=== PATIENT | male | born 1980 | race Caucasian/White ===

== ENCOUNTER 2019-08-16 09:59 | Emergency (ER) | payer OTHER ==
[2019-08-16 10:29] LABS: ABS Basophils 0.1 10^3/ul (0-0.2); ABS Eosinophils 0.3 10^3/ul (0-0.6); ABS Lymphocytes 2.5 10^3/ul (1.0-4.8); ABS Monocytes 0.6 10^3/ul (0-0.8); ABS Neutrophils 3.5 10^3/ul (1.5-7.7); Eosinophil % 3.7 %; Hematocrit 44 % (42-52); Hemoglobin 15.3 g/dL (14.0-18.0); Lymphocyte % 35.6 %; Mean Corpuscular HGB Conc 35 g/dL (31-36); Mean Corpuscular Hemoglobin 32 pg (27-31); Mean Corpuscular Volume 93 fL (80-94); Mean Platelet Volume 7.8 fL (7.4-10.4); Platelet Count 269 10^3/uL (150-450); Red Blood Count 4.72 10^6 /uL (4.18-5.48); Red Cell Distribution Width 12 % (10-15)
--- OUTSIDE RECORDS SUMMARY | 2019-08-16 10:29 | XMS REPORT | Continuity of Care Document ---
:1980 External Reference #:[id number] Author Name GEOVANNY Mann (transmitted by agent of provider Amari Fajardo M.D.) Address [address] [place] [address] Care Team Providers Name Role Phone Nato Bravo MD - Family Medicine Care Team Information Apron Trimmer [phone] [facility] - Care Team Information Apron Trimmer [phone] G[facility]enterology Problems Active Problems Provider Date Gastroesophageal reflux disease Nato Bravo M.D. Onset: 02/06/2016 Mixed hyperlipidemia Nato Bravo M.D. Onset: 02/06/2016 Allergic rhinitis Nato Bravo M.D. Onset: 02/06/2016 Symptom of skin and integumentary tissue Nato Bravo M.D. Onset: 2016 Screening for malignant neoplasm of colon Nato Bravo M.D. Onset: 09/05 Social History Type Date Description Comments Sex Unknown Tobacco Use Start: Unknown Nonsmoker ETOH Use Currently consumes alcohol Tobacco Use Start: Unknown Patient has never smoked Smoking Status Reviewed: 08/16/19 Patient has never smoked Allergies, Adverse Reactions, Alerts Description No Known Drug Allergies Medications Active Medications SIG Qnty Indications Ordering Provider Date Montelukast Sodium Take 1 Tablet By 90tabs J30.0 Nato Bravo, 2018 10mg Mouth Every Day M.D. Tablets Fenofibrate 1 by mouth every 90tabs Nato Bravo, 09/12/2018 48mg day M.D. Tablets Omeprazole Take 1 Capsule 30caps K21.9 Nato Bravo, 08/18/2018 20mg By Mouth One M.D. Capsules DR Time Daily Rosuvastatin Calcium 1 by mouth every 90tabs Nato SalgueroSeveriano Arpitadara, 10/04/2017 day M.DSeveriano 5mg Tablets Loratadine 1 po qd 477.9 Amarilis Tran, 09/28/2013 10mg Tablets [employer] History Medications Doxycycline Take 2 tablets for 2caps S30.861A Amari Panchal 05/05/2019 - Monohydrate lyme disease Tray aFjardo 08/16/2019 100mg prophylaxis Capsules Immunizations CPT Code Status Date Vaccine Lot # [id number] Given 08/16/2019 Influenza Vac, Quadrivalent, Slit Virus, Im [id number] 23666 Given 08/09/2018 Influenza Vac, [place] [id number] Given 08/07/2017 Influenza Vac, [place]riv[place] [id number] Given 09/14/2015 Influenza Vac, [place] [address] Given 11/09/2014 Influenza vac quadrivalent preservative free 6 [id number] months and up [id number] Given 08/13/2013 DO Not Use Split Influenza Virus Vaccine [id number] Given 12/21/2012 Tdap Tetanus, W Pertussis [id number] Given 09/17/2012 DO Not Use Split Influenza Virus Vaccine Vital Signs Date Vital Result Comment 08/16/2019 8:44am BP Systolic 154 mmHg BP Diastolic 86 mmHg BP Systolic Recheck 148 mmHg BP Diastolic Recheck 84 mmHg Heart Rate 74 /min Weight 196.00 lb 05/05/2019 1:52pm BP Systolic 128 mmHg BP Diastolic 82 mmHg Heart Rate 64 /min Body Temperature 98.1 F Respiratory Rate 12 /min Height 66 inches 5'6" Weight 199.50 lb BMI (Body Mass Index) 32.2 kg/m2 Results Test Date Facility Test Result H/L Range Note Laboratory test 08/16/2019 [facility]) PSA (ALL Lab <pending> 0.0-4.0 finding Comp) Laboratory test 08/16/2019 [facility] Troponin-I/T 0.07 NG/ML 0- 0.64 finding (607)- - nI Procedures Description No Information Available Medical Devices Description No Information Available Encounters Type Date Location Provider Dx Diagnosis Office Visit 05/05/2019 [facility] Office Cinthia Warner, S30.861A Insect bite 2:00p PA (nonvenomous) of abdominal wall, init encntr W57.xxxA Bit/stung by nonvenom insect & oth nonvenom arthropods, init Assessments Date Code Description Provider 08/16/2019 Z00.00 Encounter for general adult medical GEOVANNY Mann examination without abnormal findings 08/16/2019 R07.89 Other chest pain GEOVANNY Mnan 08/16/2019 Z23 Encounter for immunization GEOVANNY Mann 08/16/2019 E78.49 Other hyperlipidemia GEOVANNY Mann 08/16/2019 K21.9 Gastro-esophageal reflux disease without GEOVANNY Mann esophagitis 08/16/2019 R35.0 Frequency of micturition GEOVANNY Mann 08/16/2019 J30.89 Other allergic rhinitis GEOVANNY Mann 05/05/2019 S30.861A Insect bite (nonvenomous) of abdominal wall, GEOVANNY Mann initial encount 05/05/2019 W57.xxxA Bitten or stung by nonvenomous insect and GEOVANNY Mann other nonvenomous arthropods, initial encounter Plan of Treatment 08/16/2019 - Cinthia Warner, PAZ00.00 Encounter for general adult medical examination without abnormal findingsComments:General Physical Exam Encourage an active and healthy lifestyle with proper eating habits including fruits, vegetables, 6-8 glasses of water a day and monitoring portion size. Recommend 30 minutes of daily physical activity including walking, aerobic exercise, sports, yoga or dance. Any activity is better than no activity. Recommend routine eye and dental exams. Encourage 1200 units of calcium and 1000 units of vitamin D daily. Next physical is due in 1 year.[facility] for full skin evaluation.R07.89 Other chest painComments:Elevated troponin in office today. Proceed to the [facility] Emergency Room for further evaluation.Z23 Encounter for immunizationComments:You received the flu vaccine today.E78.49 Other bdfvygaoarphfnY12.9 Gastro-esophageal reflux disease without sjktkhmzgydA30.0 Frequency of micturitionComments:Check PSA njhajK98.89 Other allergic rhinitisAllComments:PCMHMedication Management Patient Understands medications he's taking? Yes Are there Barriers to Adherence? No Has the patient been asked about herbal supplements and therapies, and OTC meds ? Yes Care Plan1. Patient has been queried about patient's goals/ preferences and functional/lifestyle goals at relevant visits. Yes If relevant, describe: N/A2. Treatment goals as explained to the patient: above3. Are there barriers to meeting treatment goals? No If Yes, please describe:4. Self-Management goals as described to the patient: Yes As always, we strongly encourage a healthy diet and making physical activity a part of your every day life. If you have questions about how or where to start, please contact the office. Functional Status Description No Information Available Mental Status Description No Information Available Referrals Description No Information Available
[2019-08-16] MEDS ORDERED: Labetalol IV* 5 MG/ML 20 ML VIAL IV PUSH ONE (10:34)
[2019-08-16 10:35] LABS: INR 1.08 (0.82-1.09)
--- NOTE | 2019-08-16 10:38 | ED ---
Hypertension - HPI Summary HPI Summary: The patient is a 38 y/o M presenting to [facility] accompanied by with a chief complaint of elevated blood pressure and heart muscle protein while at his PCP s office this morning. He reports that he was at a check-up appointment for having continued musculoskeletal pain in his chest after falling approximately two months ago. At the appointment, vitals were found to find elevated blood pressure in the 140s systolic without a previous diagnosis of hypertension and usual blood pressure in the 120s systolic. Blood work was also drawn, and he states he was told that he had a high protein heart muscle, but he is unsure of the specific name or value of the result. Currently, his symptoms are rated 0 /10 in severity. He denies any chest pain, shortness of breath, palpitations, dizziness, or syncope now. He notes that he walks two miles every day without any onset of these symptoms. PMHx: HLD, GERD, seasonal allergies. FHx: unknown as patient is adopted. Nonsmoker, daily EtOH, no substance use. Medications reviewed. Allergies noted. - History of Current Complaint Chief Complaint: EDGeneral Stated Complaint: ELEVATED HEART PROTEIN PER DOC Time Seen by Provider: 08/16/19 10:19 Hx Obtained From: Patient Onset/Duration: Started Minutes Ago, Still Present Timing: Lasting Minutes Reported Blood Pressure Prior To Arrival: 140s systolic Aggravating Factor(s): Nothing Alleviating Factor(s): Nothing Associated Signs & Symptoms: Other: - Negative: chest pain, shortness of breath , palpitations, dizziness, syncope - Allergies/Home Medications Allergies/Adverse Reactions: Allergies Allergy/AdvReac Type Severity Reaction Status Date / Time No Known Allergies Allergy Verified 08/16/19 10:22 Home Medications: Home Medications Fenofibrate(NF) [Tricor(NF)] 48 mg PO DAILY 08/16/19 [History Confirmed 08/16/19 ] Rosuvastatin (NF) [Crestor (NF)] 5 mg PO DAILY 08/16/19 [History Confirmed 08/16] PMH/Surg Hx/FS Hx/Imm Hx Endocrine/Hematology History: Denies: Hx Diabetes Cardiovascular History: Reports: Hx Hypercholesterolemia Denies: Hx Hypertension GI History: Reports: Hx Gastroesophageal Reflux Disease Sensory History: Reports: Hx Contacts or Glasses Opthamlomology History: Reports: Hx Contacts or Glasses - Surgical History Surgical History: None Surgery Procedure, Year, and Place: none Infectious Disease History: No Infectious Disease History: Denies: Traveled Outside the [place] in Last 30 Days - Family History Known Family History: Positive: Unknown - patient is adopted and unsure of fhx - Social History Alcohol Use: Daily Hx Substance Use: No Substance Use Type: Reports: None Hx Tobacco Use: No Smoking Status (MU): Never Smoked Tobacco Review of Systems Positive: Other - elevated blood pressure. Negative: Palpitations, Chest Pain Negative: Shortness Of Breath Neurological: Other - dizziness Negative: Syncope All Other Systems Reviewed And Are Negative: Yes Physical Exam - Summary Physical Exam Summary: VITAL SIGNS: Reviewed. GENERAL: Patient is a well-developed and nourished male who is lying comfortable in the stretcher. Patient is not in any acute respiratory distress. HEAD AND FACE: No signs of trauma. No ecchymosis, hematomas or skull depressions. No sinus tenderness. EYES: PERRLA, EOMI x 2, No injected conjunctiva, no nystagmus. EARS: Hearing grossly intact. Ear canals and tympanic membranes are within normal limits. MOUTH: Oropharynx within normal limits. NECK: Supple, trachea is midline, no adenopathy, no JVD, no carotid bruit, no c- spine tenderness, neck with full ROM. CHEST: Symmetric, no tenderness at palpation. LUNGS: Clear to auscultation bilaterally. No wheezing or crackles. CVS: Regular rate and rhythm, S1 and S2 present, no murmurs or gallops appreciated. ABDOMEN: Soft, non-tender. No signs of distention. No rebound, no guarding, and no masses palpated. Bowel sounds are normal. EXTREMITIES: FROM in all major joints, no edema, no cyanosis or clubbing. NEURO: Alert and oriented x 3. No acute neurological deficits. Speech is normal and follows commands. SKIN: Dry and warm. Triage Information Reviewed: Yes Vital Signs On Initial Exam: Initial Vitals Temp Pulse Resp BP Pulse Ox 97.9 F 88 18 167/117 100 08/16/19 10:06 08/16/19 10:06 08/16/19 10:06 08/16/19 10:06 08/16/19 10:06 Vital Signs Reviewed: Yes Procedures - Sedation Patient Received Moderate/Deep Sedation with Procedure: No Diagnostics - Vital Signs Vital Signs Temp Pulse Resp BP Pulse Ox 08/16/19 10:15 96 28 171/113 99 08/16/19 10:14 16 08/16/19 10:06 97.9 F 88 18 167/117 100 - Laboratory Lab Results: Lab Results 08/16/19 Range/Units 10:20 WBC 7.0 (3.5-10.8) 10^3/uL RBC 4.72 (4.18-5.48) 10^6 /uL Hgb 15.3 (14.0-18.0) g/dL Hct 44 (42-52) % MCV 93 (80-94) fL MCH 32 H (27-31) pg MCHC 35 (31-36) g/dL RDW 12 (10-15) % Plt Count 269 (150-450) 10^3/uL MPV 7.8 (7.4-10.4) fL Neut % (Auto) 51.1 % Lymph % (Auto) 35.6 % Wise % (Auto) 8.4 % Eos % (Auto) 3.7 % Baso % (Auto) 1.2 % Absolute Neuts (auto) 3.5 (1.5-7.7) 10^3/ul Absolute Lymphs (auto) 2.5 (1.0-4.8) 10^3/ul Absolute Monos (auto) 0.6 (0-0.8) 10^3/ul Absolute Eos (auto) 0.3 (0-0.6) 10^3/ul Absolute Basos (auto) 0.1 (0-0.2) 10^3/ul Absolute Nucleated RBC 0.0 10^3/ul Nucleated RBC % 0.0 Result Diagrams: 08/16/19 10:20 08/16/19 10:20 Lab Statement: Any lab studies that have been ordered have been reviewed, and results considered in the medical decision making process. - Radiology Chest X-ray Radiology Interpretation Completed By: Radiologist Summary of Radiographic Findings: Impression: No acute cardiopulmonary process by radiograph. ED physician has reviewed this report. - EKG 1028 Cardiac Rate: NL - 80 bpm EKG Rhythm: Sinus Rhythm Summary of EKG Findings: EKG at 1028 reveals NSR at [address] elevations. ED physician has reviewed and interpreted this EKG. Re-Evaluation - Re-Evaluation First Eval Re-Evaluation Time: 12:18 Change: Improved Comment: Patient states he is feeling great. His blood pressure is 140/90 mmHg. We discussed all results and plan for discharge. Hypertension Course/Dx - Course Assessment/Plan: Patient is a 38 y/o M coming from his PCP's office with concern for elevated blood pressure and "heart protein" this morning while he was being checked for continued musculoskeletal pain following a fall two months ago, althoug he is not currently experiencing any chest pain, shortness of breath, palpitations, dizziness, or syncope. Blood work without any significant abnormality except for creatinine 1.35, glucose 103, troponin 0.00. EKG is a normal sinus rhythm with no ST elevation. Patient also reports that he had lab work this morning at 8:00 which we confirmed that the troponin is 0.00. Therefore, the patient had two troponins today which were 0. The patient continues to be asymptomatic and has no chest pain. Heart score is equal to 1. Therefore, there is no suspicion for PE. In the ED course the patient was given Lisinopril 10 mg by mouth since the patient is hypotensive. The patient has a history of hypertension; however, he is not taking any medications. At this point the patients blood pressure is 140/90. I discussed the findings and test results with GEOVANNY Mann, and she agrees for the patient to be discharged home, and she will follow-up with him in the next 2 days for better blood pressure control. I discussed all the findings and test results with the patient. Patient was instructed to return to the emergency room immediately if any of the symptoms return worsens. Plan of care was discussed with the patient and understands and agrees. All questions were answered at patient satisfaction. There were no further complaints or concerns. Lung exam before discharge: CTA B/L. Good air exchange. No wheezing or crackles heard. CVS: S1 and S2 present. No murmurs appreciated. Patient is alert and oriented x 3. Patient is hemodynamically stable. Patient will be discharged home with follow up PCP in the next 2-3 days. - Diagnoses Provider Diagnoses: Uncontrolled hypertension Discharge ED - Sign-Out/Discharge Documenting (check all that apply): Patient Departure - Patient will be discharged home. - Discharge Plan Condition: Improved Disposition: HOME Prescriptions: Lisinopril TAB* [Prinivil TAB 10 MG*] 10 mg PO DAILY #15 tab Patient Education Materials: Hypertension (ED) Referrals: Nato Bravo MD [Primary Care Provider] - 2 Days Additional Instructions: Please take medication as prescribed. Follow up with your primary care provider in 1-2 days. Return to the emergency department for any new or worsening symptoms. - Billing Disposition and Condition Condition: IMPROVED Disposition: Home - Attestation Statements Document Initiated by Ron: Yes Documenting Scribe: Natalie Lewis Provider For Whom Ron is Documenting (Include Credential): Dr. Jitendra Strong MD Scribe Attestation: Natalie Mejia scribed for Dr. Jitendra Strong MD on 08/17/19 at 1841. Scribe Documentation Reviewed: Yes Provider Attestation: The documentation as recorded by the Natalie carcamo accurately reflects the service I personally performed and the decisions made by me, Dr. Jitendra Strong MD Status of Scribe Document: Viewed
[2019-08-16 10:48] LABS: Albumin 4.9 g/dL (3.2-5.2); Albumin/Globulin Ratio 1.8 (1-3); BUN/Creatinine Ratio 11.9 (8-20); Calcium 9.7 mg/dL (8.6-10.3); EGFR African American 71.2 (>60); EGFR Non-African American 58.8 (>60); Globulin 2.7 g/dL (2-4); Potassium 3.9 mmol/L (3.5-5.0); Total Bilirubin 0.5 mg/dL (0.2-1.0); Total Protein 7.6 g/dL (6.4-8.9)
[2019-08-16] MEDS ORDERED: Lisinopril TAB* 5 MG PO ONE (11:13)
[2019-08-16 13:07] VITALS: BP 141/93
== END 2019-08-16 13:02 | disposition home or self-care (01) ==
LOC: ED 09:59
DX: I10 Essential (primary) hypertension (principal); E78.00 Pure hypercholesterolemia, unspecified; K21.9 Gastro-esophageal reflux disease without esophagitis; Z79.899 Other long term (current) drug therapy
CPT/HCPCS: 36415; 71045; 80053; 84484; 85025; 85610; 93005; 96374; 99283; A9270-GY